=== PATIENT | male | born 1945 | race Hispanic/Latino ===

== ENCOUNTER 2019-05-09 08:30 | Day surgery (SDC) | payer OTHER ==
[2019-05-09] MEDS ORDERED: DIPRIVAN 10 MG/ML IV ONE ×2 (10:04)
--- NOTE | 2019-05-09 10:07 | Anesthesia Consultation ---
Anesthesia Consult and Med Hx Date of service: 05/09/19 - Airway Anesthetic Teeth Evaluation: Edentulous ROM Head & Neck: Adequate Mental/Hyoid Distance: Adequate Mallampati Class: Class II Intubation Access Assessment: Probably Good - Pre-Operative Health Status ASA Pre-Surgery Classification: ASA3 Proposed Anesthetic Plan: MAC - Pulmonary Hx Sleep Apnea: Yes (CPAP) - Cardiovascular System Hx Hypertension: Yes - Central Nervous System CVA: No (s/x for brain tumor (2007)) - Other Systems Hx Cancer: Yes (NON-HODGKIN'S LYMPHOMA (2014))
--- NOTE | 2019-05-09 10:07 | Anesthesia Day of Surgery ---
Anesthesia Day of Surgery - Day of Surgery Patient Examined: Yes Patient H&P Reviewed: Yes Patient is NPO: Yes
--- NOTE | 2019-05-09 10:20 | Procedure Note ---
Date of procedure: 05/09/19 Pre-op diagnosis: Colon Polyp Screening Post-op diagnosis: other (Minor, Internal Hemorrhoid. No Colon Polyps noted. Follow up in 1 to 2 weeks [phone]).) Procedure: Colonoscopy Anesthesia: MAC Surgeon: TIERRA PALOMARES Estimated blood loss: none Pathology: none Condition: stable Disposition: same day (Follow up in 1 to 2 weeks ([phone]).)
--- NOTE | 2019-05-09 10:37 | Operative Report ---
INDICATIONS: This is a 73-year-old white male with an underlying history of diabetes mellitus, hypertension, prior history of non-Hodgkin's lymphoma and a benign brain tumor. He had had a prior history of colon polyps. Repeat colonoscopy was done to make sure that there was not any recurrence of any polyps. DESCRIPTION OF PROCEDURE: The procedure was done after getting informed consent with MAC anesthesia. Initial rectal exam was unremarkable. Instrument was passed through the rectum into the cecum, which was identified with ileocecal valve and the appendiceal orifice. Cecum, ascending colon, transverse colon, descending colon, and sigmoid showed normal mucosa. There was no evidence of any polyps, colitis or diverticular disease and the rectum showed some minor internal hemorrhoid on the retroverted view. ASSESSMENT: Colon polyp screening, no colon polyps noted, prior history of colon polyps, history of non-Hodgkin's lymphoma, minor internal hemorrhoids. There was no bleeding associated with the procedure. No complications associated with the procedure. Procedure was done in the GI lab with the assistance of Anesthesia and the help of RN, Stacey Kramer and tal Steele. The patient will be asked to follow up in the office in 1-2 weeks' time. JOB# [id number] DELANEY/RUFINA
[2019-05-09 10:49] VITALS: BP 152/89
[2019-05-09] MEDS ORDERED: NACL 0.9% 1000 ML 1,000 ML ONE (11:28)
[2019-05-09] MEDS ORDERED: NACL 0.9% 1000 ML 1,000 ML IV SCH (15:00)
== END 2019-05-09 08:31 | disposition home or self-care (01) ==
LOC: GIO 08:30
DX: Z12.11 Encounter for screening for malignant neoplasm of colon (principal); K64.8 Other hemorrhoids; K57.30 Diverticulosis of large intestine without perforation or abscess without bleeding; I10 Essential (primary) hypertension; E11.9 Type 2 diabetes mellitus without complications; G47.30 Sleep apnea, unspecified; Z80.0 Family history of malignant neoplasm of digestive organs; Z86.010 Personal history of colon polyps; Z79.899 Other long term (current) drug therapy; Z85.89 Personal history of malignant neoplasm of other organs and systems
CPT/HCPCS: 45378; 82962; J2704; J7030